=== PATIENT | female | born 1970 | race Caucasian/White ===

== ENCOUNTER → 2018-10-06 | Outpatient (CLI) | payer BC, OTHER ==
--- NOTE | 2018-10-06 09:36 | RADIOLOGY REPORT (SQ) ---
EXAM DESCRIPTION: MRI LUMBAR SPINE WITHOUT COMPLETED DATE/TIME: 10/06/2018 9:20 am REASON FOR STUDY: LUMBAR DDD (M51.26) M51.26 OTHER INTERVERTEBRAL DISC DISPLACEMENT, LUMBAR REGION COMPARISON: None. TECHNIQUE: Sagittal and Axial imaging includes T1, T2, STIR and gradient echo sequences. Coronal T2/ HASTE imaging. LIMITATIONS: None. FINDINGS: VISUALIZED UPPER ABDOMEN: Limited evaluation. No acute or suspicious findings suggested. SEGMENTATION: No transitional anatomy. The lowest well-developed disc space is labeled L5-S1. ALIGNMENT: There is 29 of convex rightward lumbar curvature from the top of T12 to the bottom of L4. Mild grade 1 anterolisthesis of L4 over L5 is also present. VERTEBRAE: Intact. BONE MARROW: Fatty endplate changes on the left at L2-3 DISC SIGNAL: Diffuse decreased T2 weighted intervertebral disc signal POSTERIOR ELEMENTS: Generally intact. No pars defect evident. HARDWARE: None in the spine. CORD AND CONUS: Normal in size and signal intensity. Conus at the T12-L1 level. SOFT TISSUES: No aortic aneurysm seen. No bulky retroperitoneal adenopathy or mass. No paraspinal mas s or fluid. T11-12: No central or foraminal stenosis. Mild bilateral facet hypertrophy. T12-L1: No central or foraminal stenosis. Mild bilateral facet hypertrophy. L1-L2: No significant spinal stenosis or exit foraminal stenosis. L2-L3: Broad diffuse posterior disc bulge left greater than right and [id number] bilateral face t hypertrophy are present. No right foraminal narrowing or central canal stenosis. Mild left forami nal narrowing without exiting L2 nerve root impingement. L3-L4: Mild diffuse posterior disc bulging is present with mild bilateral facet and ligament hypertro phy. No significant central canal narrowing. Very mild bilateral inferior foraminal narrowing witho ut exiting L3 nerve root impingement. L4-L5: Very mild grade 1 anterolisthesis of L4 over L5 is present related to advanced facet arthropat hy. Very bulky right-sided facet hypertrophy along with broad diffuse mild posterior disc bulging ca uses borderline central canal narrowing, mild to moderate right foraminal narrowing without definite exiting L4 nerve root impingement, and flattening of the thecal sac at the takeoff of the right proxi mal L5 nerve root in the lateral recess. These changes are best shown on sagittal images 6-9, and ax ial T2 images 21-24. There is mild left foraminal narrowing without exiting left L4 nerve root impin gement. L5-S1: Mild posterior disc bulging and facet arthropathy. No central or foraminal stenosis SACRUM: Visualized upper sacrum intact. OTHER: No other significant findings. IMPRESSION: Degenerative changes most pronounced at L4-5 TECHNICAL DOCUMENTATION: JOB ID: [id number] [employer]- All Rights Reserved Reading location - IP/workstation name: [email or web address]
--- NOTE | 2018-10-06 11:00 | RADIOLOGY REPORT (SQ) ---
EXAM DESCRIPTION: L SPINE FLEX/EXT ONLY COMPLETED DATE/TIME: 10/06/2018 9:35 am REASON FOR STUDY: SPONDYLOLISTHESIS (Q76.2) M51.26 OTHER INTERVERTEBRAL DISC DISPLACEMENT, LUMBAR R EGION COMPARISON: MRI lumbar spine 10/06/2018 NUMBER OF VIEWS: Two views TECHNIQUE: Lateral lumbar flexion film. Lateral lumbar extension film LIMITATIONS: None. FINDINGS: MINERALIZATION: Normal. SEGMENTATION: Normal. No transitional anatomy. ALIGNMENT: There is minimal grade 1 anterolisthesis of L4 over L5 unchanged between flexion/extension images. FLEXION/EXTENSION: No instability. VERTEBRAE: Maintained height. No fracture or worrisome bone lesion. DISCS: Disc space loss of height at L2-3. POSTERIOR ELEMENTS: Pedicles and facets are intact. No pars defect or posterior arch defects. Bilat eral facet arthropathy at L4-5 and L5-S1. HARDWARE: None in the spine. OTHER: No other significant finding. IMPRESSION: Disc space loss of height at L2-3. Fixed grade 1 anterolisthesis of L4 over L5 related to advanced facet arthropathy. NO INSTABILITY ON FLEXION/EXTENSION. TECHNICAL DOCUMENTATION: JOB ID: [id number] [employer]- All Rights Reserved Reading location - IP/workstation name: [facility]
== END ==
LOC: RAD 08:24
PROVIDERS: ATTEND Pain Medicine Interventional Pain Medicine
DX: M51.26 Other intervertebral disc displacement, lumbar region (principal)
CPT/HCPCS: 72120; 72148

== ENCOUNTER → 2019-12-05 | Outpatient (CLI) | payer OTHER ==
--- NOTE | 2019-12-05 13:56 | XCELERA REPORT ---
[address] [address] Lower Extremity Venous Evaluation Procedure: A bilateral duplex scan of the lower extremity veins was performed. The evaluation included responses to compression and other maneuvers with patient in the supine and standing positions to assess venous insufficiency. Right Sided Venous Evaluation Deep venous system evaluation shows patent veins with no significant reflux identified. Sapheno Femoral junction: no reflux. Greater Saphenous vein, Proximal thigh: reflux: no reflux. Greater Saphenous vein, mid thigh: reflux:no reflux. Greater Saphenous vein, Distal thigh: reflux:no reflux. Greater Saphenous vein, Proximal below knee: reflux: none Greater Saphenous vein, Mid below knee: reflux: none. Greater Saphenous vein, Distal below knee: reflux: no reflux. No significant Perforators identified. Left Sided Venous Evaluation Deep venous system evaluation shows patent veins with no significant reflux identified. Sapheno Femoral junction: no reflux. Greater Saphenous vein, Proximal thigh: reflux: no reflux. Greater Saphenous vein, mid thigh: reflux:no reflux. Greater Saphenous vein, Distal thigh: reflux:no reflux. Greater Saphenous vein, Proximal below knee: reflux: none Greater Saphenous vein, Mid below knee: reflux: none. Greater Saphenous vein, Distal below knee: reflux: no reflux. No significant Perforators identified. Interpretation Summary No duplex evidence of DVT or obstruction in the bilateral lower extremities. No deep prior superficial reflux identified in this patient with prior right sided vein intervention. Name: JERRELL NAVARRETE Age: 49 yrs Gender: Female : 1970 Patient Status: Outpatient Patient Location: Study Date: 12/05/2019 08:08 AM Reason For Study: PAIN IN LEG Ordering Physician: IAN MUSTAFA Performed By: Tammie Lopez : IAN MUSTAFA > Ian Mustafa
--- NOTE | 2019-12-06 11:46 | XCELERA REPORT ---
[address] [address] Tel: [phone] Fax: [phone] Lower Extremity Arterial Evaluation Name: JERRELL NAVARRETE Age: 49 yrs Gender: Female : 1970 Patient Status: Outpatient Patient Location: SP Study Date: 12/05/2019 12:13 PM Procedure: Ankle brachial indicies performed. Reason For Study: PAIN Ordering Physician: KATHI THAO Performed By: Neftali Jones Right Side Arterial Evaluation SERAFIN in Posterior Tibial:1.02. Multiphasic waveform. Left Side Arterial Evaluation SERAFIN in Posterior Tibial:1.00. Multiphasic waveform. Interpretation Summary SERAFIN's are normal suggesting no significant obstructive arterial disease. In the lowere extremities. Within the limitations of this technique. : KATHI THAO > Kathi Thao
== END ==
LOC: SP 07:46
PROVIDERS: ATTEND Surgery
DX: M79.606 Pain in leg, unspecified (principal)
CPT/HCPCS: 93922; 93970

== ENCOUNTER → 2019-12-15 | Outpatient (CLI) | payer OTHER ==
--- NOTE | 2019-12-15 11:17 | WOMENS IMAGING REPORT ---
EXAM DESCRIPTION: U/S ABDOMEN TOTAL COMPLETED DATE/TIME: 12/15/2019 7:47 am REASON FOR STUDY: R10.9 UNSPECIFIED ABDOMINAL PAIN R10.9 UNSPECIFIED ABDOMINAL PAIN COMPARISON: MRI lumbar spine 10/06/2018 TECHNIQUE: Dynamic and static grayscale images acquired of the abdomen and recorded on PACS. Additio nal selected color Doppler and spectral images recorded. Note: Study does not meet criteria for complete doppler/duplex scan LIMITATIONS: None. FINDINGS: PANCREAS: Midline pancreas unremarkable LIVER: No masses. Echotexture normal. LIVER VASCULATURE: Normal directional flow of the main portal vein and hepatic veins. GALLBLADDER: No stones. Normal wall thickness. No pericholecystic fluid. ULTRASOUND-DETECTED CA'S SIGN: Negative. INTRAHEPATIC DUCTS AND COMMON DUCT: CBD and intrahepatic ducts normal caliber. No filling defects. INFERIOR VENA CAVA: Normal flow. AORTA: No aneurysm. RIGHT KIDNEY: Normal size. Normal echogenicity. No solid or suspicious masses. No hydronephros is. No calcifications. LEFT KIDNEY: Normal size. Normal echogenicity. No solid or suspicious masses. No hydronephrosi s. No calcifications. SPLEEN: Normal size. No solid masses. PERITONEAL AND PLEURAL SPACES: No ascites or effusions. OTHER: No other significant finding. IMPRESSION: NORMAL ABDOMINAL ULTRASOUND. TECHNICAL DOCUMENTATION: JOB ID: [id number] [employer]- All Rights Reserved Reading location - IP/workstation name: [email or web address]
== END ==
LOC: WI 06:55
PROVIDERS: ATTEND Internal Medicine Gastroenterology
DX: R10.9 Unspecified abdominal pain (principal)
CPT/HCPCS: 76700

== ENCOUNTER → 2020-09-04 | Outpatient (CLI) | payer OTHER ==
--- NOTE | 2020-09-04 19:22 | RADIOLOGY REPORT (SQ) ---
EXAM DESCRIPTION: MRI LUMBAR SPINE WITHOUT IMAGES COMPLETED DATE/TIME: 09/04/2020 3:57 pm REASON FOR STUDY: (M54.16)RADICULOPATHY, LUMBAR REGION M54.16 RADICULOPATHY, LUMBAR REGION M54.2 C ERVICALGIA. Low back pain radiating down both legs. Spinal stimulator. Decreased range of motion, radiating pain, stiffness, tingling, sciatica, symptoms for 5 years. COMPARISON: MRI lumbar spine, 10/06/2018. Lumbar spine radiographs, 10/06/2018. TECHNIQUE: Sagittal and Axial imaging includes T1, T2, STIR and gradient echo sequences. Coronal T2/ HASTE imaging. LIMITATIONS: None. FINDINGS: VISUALIZED UPPER ABDOMEN: Limited evaluation. No acute or suspicious findings suggested. SEGMENTATION: No transitional anatomy. The lowest well-developed disc space is labeled L5-S1. ALIGNMENT: Approximately 30 apex right scoliotic curvature, unchanged from prior. Mild grade 1 ante rolisthesis L4 on L5. Findings are unchanged from prior. VERTEBRAE: Intact. BONE MARROW: Normal. No marrow replacement or reactive changes. DISC SIGNAL: Multilevel degenerative disc disease with loss of intervertebral disc signal and height. POSTERIOR ELEMENTS: Generally intact. No pars defect evident. HARDWARE: None in the spine. CORD AND CONUS: Normal in size and signal intensity. Conus at the appropriate level. SOFT TISSUES: No aortic aneurysm seen. No bulky retroperitoneal adenopathy or mass. No paraspinal mas s or fluid. L1-L2: No significant spinal stenosis or exit foraminal stenosis. L2-L3: Small broad-based posterior disc bulge. Disc material extends to the right and left neural fo ramen. No significant spinal canal stenosis. Bilateral facet arthropathy. Facet arthropathy and di sc material contribute to mild bilateral neural foraminal stenosis, unchanged from prior. L3-L4: Mild diffuse posterior disc bulge. Mild bilateral facet hypertrophy. No spinal canal stenosi s. No significant neural foraminal stenosis. L4-L5: Moderate loss of intervertebral disc height. Mild anterolisthesis L4 on L5. Bilateral facet arthropathy with hypertrophy of the ligamentum flavum. Small broad-based posterior disc bulge with n o significant spinal canal stenosis. Disc material extends to the right and left neural foramen whic h in conjunction with facet arthropathy contributes to moderate right neural foraminal stenosis. No significant left neural foraminal stenosis. L5-S1: Mild loss of posterior intervertebral disc height. No significant spinal canal stenosis. No neural foraminal stenosis. LOWER THORACIC: Incompletely imaged. No stenosis seen. SACRUM: Sacral Tarlov cysts. OTHER: No other significant findings. IMPRESSION: 1. No significant interval change. Mild scoliotic curvature and mild anterolisthesis. Multilevel de generative disc disease as described. No significant spinal canal stenosis. Neural foraminal stenos is as described above. TECHNICAL DOCUMENTATION: JOB ID: [id number] 2010 [employer]- All Rights Reserved Reading location - IP/workstation name: [email or web address]
--- NOTE | 2020-09-04 19:24 | RADIOLOGY REPORT (SQ) ---
EXAM DESCRIPTION: CERV SP 4 OR 5 VIEWS IMAGES COMPLETED DATE/TIME: 09/04/2020 4:38 pm REASON FOR STUDY: (M54.2)CERVICALGIA M54.16 RADICULOPATHY, LUMBAR REGION M54.2 CERVICALGIA COMPARISON: None. NUMBER OF VIEWS: Five views. TECHNIQUE: AP, lateral, obliques and odontoid radiographic images acquired of the cervical spine. LIMITATIONS: None. FINDINGS: MINERALIZATION: Normal. ALIGNMENT: Anatomic. VERTEBRAE: No acute fracture or loss of vertebral body height. Small marginal osteophytes at the inf erior endplate C5 and superior endplate C6. DISCS: Mild degenerative disc disease most prominent at C5-C6. FORAMINA: No osteophytes or foraminal narrowing. LATERAL AND POSTERIOR ELEMENTS: Facets, lateral masses and spinous processes without significant find ings. HARDWARE: None in the spine. SOFT TISSUES: No masses or calcifications. Lung apices clear. OTHER: No other significant finding. IMPRESSION: Mild degenerative disc disease and spondylosis in the mid cervical spine. No acute frac ture or dislocation. TECHNICAL DOCUMENTATION: JOB ID: [id number] [employer]- All Rights Reserved Reading location - IP/workstation name: [email or web address]
== END ==
LOC: RAD 16:13
PROVIDERS: ATTEND Student in an Organized Health Care Education/Training Program
DX: M54.16 Radiculopathy, lumbar region (principal); M50.322 Other cervical disc degeneration at C5-C6 level; M47.812 Spondylosis without myelopathy or radiculopathy, cervical region
CPT/HCPCS: 72050; 72148

== ENCOUNTER → 2020-09-18 | Outpatient (CLI) | payer OTHER ==
[2020-09-18 15:16] LABS: INTERNATIONAL RATION (INR) 0.97; PARTIAL THROMBOPLASTIN TIME 29.7 SEC (23.5-35.8); PROTHROMBIN TIME 13.1 SEC (11.4-15.4)
[2020-09-18 15:18] LABS: ABSOLUTE EOSINOPHILS # (AUTO) 0.1 10^3/uL (0.0-0.6); ABSOLUTE LYMPHOCYTES (AUTO) 2.6 10^3/uL (0.5-4.7); ABSOLUTE MONOCYTES (AUTO) 0.3 10^3/uL (0.1-1.4); ABSOLUTE NEUT (AUTO) 2.7 10^3/uL (1.7-8.2); BASOPHILS % (AUTO) 0.5 % (0-2); HEMATOCRIT 37.3 % (36.0-47.0); HEMOGLOBIN 13.1 g/dL (12.0-15.5); LYMPHOCYTES % (AUTO) 45.6 % (13-45); MEAN CORPUSCULAR HEMOGLOBIN 34.5 pg (27.0-33.4); MEAN CORPUSCULAR HGB CONC 35.1 g/dL (32.0-36.0); MEAN CORPUSCULAR VOLUME 98 fl (80-97); PLATELET COUNT 228 10^3/uL (150-450); RED CELL DISTRIBUTION WIDTH 12.9 % (11.5-14.0); SEGMENTED NEUTROPHILS % (AUTO) 46.9 % (42-78); TOTAL CELLS COUNTED % (AUTO) 100 %; WHITE BLOOD COUNT 5.7 10^3/uL (4.0-10.5)
[2020-09-18 15:31] LABS: APPEARANCE,URINE CLEAR; BILIRUBIN,URINE NEGATIVE (NEGATIVE); COLOR,URINE YELLOW; GLUCOSE, URINE NEGATIVE (NEGATIVE); KETONES,URINE NEGATIVE (NEGATIVE); LEUKOCYTE ESTERASE,URINE NEGATIVE (NEGATIVE); NITRITE,URINE NEGATIVE (NEGATIVE); PROTEIN,URINE NEGATIVE (NEGATIVE); URINE SPECIFIC GRAVITY 1.011; UROBILINOGEN,URINE NEGATIVE mg/dL (<2.0)
== END ==
LOC: OD 14:31
PROVIDERS: ATTEND Student in an Organized Health Care Education/Training Program
DX: M54.16 Radiculopathy, lumbar region (principal)
CPT/HCPCS: 36415; 81001; 85025; 85610; 85730

== ENCOUNTER → 2020-10-03 | Outpatient (CLI) | payer OTHER ==
--- NOTE | 2020-10-03 19:12 | RADIOLOGY REPORT (SQ) ---
EXAM DESCRIPTION: MRI THORACIC SPINE WITHOUT IMAGES COMPLETED DATE/TIME: 10/03/2020 5:09 pm REASON FOR STUDY: (M54.16)RADICULOPATHY, LUMBAR REGION M54.16 RADICULOPATHY, LUMBAR REGION COMPARISON: None. TECHNIQUE: Sagittal and Axial imaging includes T1, T2, STIR and gradient echo sequences. LIMITATIONS: None. FINDINGS: LOCALIZER: No worrisome findings. ALIGNMENT: Normal. VERTEBRAE: Intact. BONE MARROW: Normal. No marrow replacement or reactive changes. HARDWARE: None in the spine. CORD: Normal in size and signal intensity. SOFT TISSUES: No soft tissue masses. THORACIC DISCS T1-T12: No significant spinal stenosis or exit foraminal stenosis. LOWER CERVICAL: Incompletely imaged. No significant spinal stenosis or exit foraminal stenosis. UPPER LUMBAR: Incompletely imaged. No significant spinal stenosis or exit foraminal stenosis. OTHER: No other significant finding. IMPRESSION: NORMAL MRI THORACIC SPINE. TECHNICAL DOCUMENTATION: JOB ID: [id number] 2010 [employer]- All Rights Reserved Reading location - IP/workstation name: [email or web address]
--- OUTSIDE RECORDS SUMMARY | 2020-10-04 15:44 | XMS REPORT ---
:1970 Author Organization [facility] [address] [place] [address] Care Team Providers Name Role Phone DESTINI MCDONALD Primary Care Physician Unavailable Jeremiah Nair Attending Clinician Unavailable Rach Dominguez Attending Clinician Unavailable Fay Coley Attending Clinician Unavailable Kasie Mcleod Attending Clinician Unavailable Allergies, Adverse Reactions, Alerts Allergy Name Allergy Status Severity Reaction(s) Onset Inactive Treat ing Comments Type Date Date Clinician PENICILLINS Miscellaneo Active U 2018-0 us allergy 1-15 00:00: 00 SULFA Miscellaneo Active U (SULFONAMIDE us allergy 1-15 ANTIBIOTICS) 00:00: 00 CODEINE Drug Active U 2019 allergy 1-15 00:00: 00 CodeineSulfa Drug Active U hives te Allergy 2-06 00:00: 00 Latex Drug Active U skin Allergy irritation 2-06 00:00: 00 penicillin Drug Active U hives Allergy 2-06 00:00: 00 sulfa Drug Active U hives Allergy 2-06 00:00: 00 Medications Ordered Filled Start Stop Current Ordering Indication Dosage Frequency Signature Comments Components Medication Medication Date Date Medication? Clinician (SIG) Name Name Tramadol 2017-11 No 1 tablet HCl 50 MG 0-03 Orally tid 00:00: prn pain 00 Tramadol No 1 tablet HCl 50 MG 4-13 Orally tid 00:00: prn pain 00 Levocetiriz No 1 tablet ine orally qhs Dihydrochlo ride 5mg Montelukast No QD 1 tablet Sodium 10 in the MG evening Orally Once a day Levothyroxi No QD 1 tablet ne Sodium on an 125 MCG empty stomach in the morning Orally Once a day Escitalopra No QD 1 tablet m Oxalate Orally 10 MG Once a day Restoril 30 Yes 1 capsule MG Orally qhs prn sleep Problems Condition Condition Condition Status Onset Resolution Last Treatin g Comments Name Details Category Date Date Treatment Clinician Date Acute Acute Problem Active right-sided right-sided 6-05 low back low back 00:00: pain with pain with 00 right-sided right-sided sciatica sciatica Gastroesoph Gastroesoph Problem Active ageal ageal 4-19 reflux reflux 00:00: disease, disease, 00 esophagitis esophagitis presence presence not not specified specified Hypothyroid Hypothyroid Problem Active ism ism 12-17 (acquired) (acquired) 00:00: 00 Migraine Migraine Problem Active without without 12-17 aura and aura and 00:00: without without 00 status status migrainosus migrainosus , not , not intractable intractable Procedures Procedure Date / Time Performed Performing Clinician Devi e OFFICE/OUTPATIENT VISIT EST 2018-12-28 16:15:00 OFFICE/OUTPATIENT VISIT NEW 2018-12-06 15:00:00 [id number] 2018-04-29 00:00:00 [id number] 2018-04-29 00:00:00 [id number] 2018-04-29 00:00:00 [id number] 2018-04-29 00:00:00 [id number] 2018-04-29 00:00:00 Offic Visit, Est Pt., Level 3 (2018-04-29 00:00:00 min) [id number] 2018-04-28 00:00:00 [id number] 2018-04-28 00:00:00 [id number] 2018-04-28 00:00:00 [id number] 2018-04-26 00:00:00 J3301 2018-04-26 00:00:00 [id number] 2018-04-26 00:00:00 [id number] 2018-03-14 00:00:00 Offic Visit, Est Pt., Level 5 (2018-03-14 00:00:00 min) [id number] 2018-01-19 00:00:00 [id number] 2018-01-19 00:00:00 [id number] 2017-12-31 00:00:00 [id number] 2017-12-28 00:00:00 [id number] 2017-12-28 00:00:00 Offic Visit, Est Pt., Level 3 (2017-10-18 00:00:00 min) [id number] 2017-08-16 00:00:00 [id number] 2017-08-16 00:00:00 Offic Visit, Est Pt., Level 3 (2017-08-16 00:00:00 min) Pneumococcal 2016-12-17 00:00:00 [id number] 2016-12-17 00:00:00 Offic Visit, New Pt., Level 3 (2016-12-17 00:00:00 min) Results Test Description Test Time Test Comments Text Results Atomic Results Result Comments INTERPRETATION 2018-12-07 13:59:00 See Below RESPIRATORY ALLERGY PROFILE REGION II 2018-12-07 13:59:00 Test Item Value Reference Range Comments MOUSE URINE PROTEINS (E72) IGE (test code = 05452635) <0.10 kU/L CLASS (test code = 69949605) 0 CLADOSPORIUM HERBARUM (M2) IGE (test code = 78570911) <0.10 kU/L SHEEP SORREL (W18) IGE (test code = 30063964) <0.10 kU/L CLASS (test code = 19528592) 0 IMMUNOGLOBULIN E (test code = 64217603) 62 kU/L <IR=064 CLASS (test code = 89481947) 0 ALTERNARIA ALTERNATA (M6) IGE (test code = 65766203) <0.10 kU/L ASPERGILLUS FUMIGATUS (M3) IGE (test code = 52170257) <0.10 kU/L CLASS (test code = 16729618) 2 CLASS (test code = 70049017) 0 CLASS (test code = 46492632) 0 CLASS (test code = 34509569) 0 COTTON[place]OD (T14) IGE (test code = 10724550) <0.10 kU/L WHITE MULBERRY (T70) IGE (test code = 93550085) <0.10 kU/L BIRCH (T3) IGE (test code = 93273121) <0.10 kU/L DERMATOPHAGOIDES FARINAE (D2) IGE (test code = 41044959) <0.10 k U/L CLASS (test code = 80282281) 0 HICKORY/PECAN TREE (T22) IGE (test code = 60497803) 0.11 kU/L MAPLE (BOX ELDER) (T1) IGE (test code = 91936784) <0.10 kU/L CAT DANDER (E1) IGE (test code = 69011354) <0.10 kU/L CLASS (test code = 64257813) 0 ROUGH PIGWEED (W14) IGE (test code = 69059495) <0.10 kU/L M[place] (T6) IGE (test code = 70328143) <0.10 kU/L KEISHA GRASS (G6) IGE (test code = 50048126) 2.94 kU/L BERMUDA GRASS (G2) IGE (test code = 75334013) 0.27 kU/L COMMON RAGWEED (SHORT) (W1) IGE (test code = 65668370) <0.10 kU/ L CLASS (test code = 90081627) 0 DOG DANDER (E5) IGE (test code = 76841438) <0.10 kU/L CLASS (test code = 92092334) 0 SHELLEY GRASS (G10) IGE (test code = 31142720) 0.64 kU/L CLASS (test code = 77918639) 0 CLASS (test code = 92016755) 0 DERMATOPHAGOIDES PTERONYSSINUS (D1) IGE (test code = 86063360) < 0.10 kU/L CLASS (test code = 43485477) 0 CLASS (test code = 37263677) 0 ELM (T8) IGE (test code = 88248757) <0.10 kU/L PENICILLIUM NOTATUM (M1) IGE (test code = 15649036) <0.10 kU/L CLASS (test code = 76996140) 0 CLASS (test code = 31085882) 0 CLASS (test code = 04421727) 0 OAK (T7) IGE (test code = 27089469) <0.10 kU/L CLASS (test code = 66630838) 0 CLASS (test code = 13598547) 0 CLASS (test code = 09984588) 0 CLASS (test code = 50255768) 0 COCKROACH (I6) IGE (test code = 88496474) <0.10 kU/L CLASS (test code = 71424262) 1 CLASS (test code = 21841773) 0 BASIC METABOLIC [id number] 00:00:00 Test Item Value Reference Range Comments CARBON DIOXIDE (test code 30 mmol/L 20-31 Hildeb rafael,Rach L = 83000976) 04/29/2018 12:34 :06 PM EDT > CREATININE (test code = 0.66 mg/dL 0.50-1.10 Hildebra n,Rach L 82729242) 04/29/2018 12:34 :06 PM EDT > eGFR NON-AFR. ANGUILLAN 107 mL/min/1.73m2 > OR = 60 Hildebr an,Rach L (test code = 59927081) 8 12:34:06 PM EDT > POTASSIUM (test code = 4.2 mmol/L 3.5-5.3 [place] ,Rach L 69413007) 04/29/2018 12:34 :06 PM EDT > eGFR 124 mL/min/1.73m2 > OR = 60 Hildebra n,Rach L (test code = 12837971) 8 12:34:06 PM EDT > CHLORIDE (test code = 104 mmol/L 98-110 [place], Rach L 40152768) 04/29/2018 12:34 :06 PM EDT > CALCIUM (test code = 9.2 mg/dL 8.6-10.2 [place],T racy L [id number]) 04/29/2018 12:34 :06 PM EDT > BUN/CREATININE RATIO NOT APPLICABLE (calc) 6-22 Nayana branRach L (test code = 74324238) 8 12:34:06 PM EDT > SODIUM (test code = 139 mmol/L 135-146 [place],Tr acy L 89271939) 04/29/2018 12:34 :06 PM EDT > UREA NITROGEN (BUN) (test 15 mg/dL 7-25 Tedeb rafael,Rach L code = 42814294) 04/29/2018 12:3 4:06 PM EDT > GLUCOSE (test code = 104 mg/dL 65-99 [place],T racy L [id number]) 04/29/2018 12:34 :06 PM EDT > CBC (INCLUDES DIFF/PLT)2018-04-29 00:00:00 Test Item Value Reference Range Comments BASOPHILS (test code = 0.6 % [place] ,Rach L [id number]) 04/29/2018 12:33 :55 PM EDT > ABSOLUTE BASOPHILS (test 31 cells/uL 0-200 Hildebr an,Rach L code = 92201468) 04/29/2018 12:3 3:55 PM EDT > LYMPHOCYTES (test code = 29.0 % Hildebr an,Rach L 08746356) 04/29/2018 12:33 :55 PM EDT > RDW (test code = 51252325) 13.6 % 11.0-15.0 Nayana bran,Rach L 04/29/2018 12:33 :55 PM EDT > MCV (test code = 31592687) 98.4 fL 80.0-100.0 Nayana bran,Rach L 04/29/2018 12:33 :55 PM EDT > ABSOLUTE MONOCYTES (test 754 cells/uL 200-950 Hildebr an,Rach L code = 79001228) 04/29/2018 12:3 3:55 PM EDT > HEMATOCRIT (test code = 42.5 % 35.0-45.0 Hildebra n,Rach L [id number]) 04/29/2018 12:33 :55 PM EDT > PLATELET COUNT (test code = 214 Thousand/uL 140-400 Hild ebran,Rach L 08935370) 04/29/2018 12:33 :55 PM EDT > ABSOLUTE EOSINOPHILS (test 172 cells/uL 15-500 Nayana bran,Rach L code = 15876014) 04/29/2018 12:3 3:55 PM EDT > MONOCYTES (test code = 14.5 % [place] ,Rach L 97483132) 04/29/2018 12:33 :55 PM EDT > MCHC (test code = 73602896) 32.9 g/dL 32.0-36.0 Hild ebran,Rach L 04/29/2018 12:33 :55 PM EDT > ABSOLUTE NEUTROPHILS (test 2735 cells/uL 0390-2603 Nayana bran,Rach L code = 94652305) 04/29/2018 12:3 3:55 PM EDT > HEMOGLOBIN (test code = 14.0 g/dL 11.7-15.5 Hildebra n,Rach L 35107163) 04/29/2018 12:33 :55 PM EDT > NEUTROPHILS (test code = 52.6 % Rach Morgan L 43400723) 04/29/2018 12:33 :55 PM EDT > EOSINOPHILS (test code = 3.3 % Rach Morgan L 33898977) 04/29/2018 12:33 :55 PM EDT > RED BLOOD CELL COUNT (test 4.32 Million/uL 3.80-5.10 Rach Licona L code = 93922393) 04/29/2018 12:3 3:55 PM EDT > MCH (test code = 54426942) 32.4 pg 27.0-33.0 Rach Licona 04/29/2018 12:33 :55 PM EDT > ABSOLUTE LYMPHOCYTES (test 1508 cells/uL 850-3900 Rach Licona L code = 35986151) 04/29/2018 12:3 3:55 PM EDT > WHITE BLOOD CELL COUNT (test 5.2 Thousand/uL 3.8-10.8 Rach Jerez L code = 62174147) 04/29/2018 12:3 3:55 PM EDT > MPV (test code = 63103274) 10.0 fL 7.5-12.5 Rach Licona 04/29/2018 12:33 :55 PM EDT > T4, Total/[id number] 00:00:00 Test Item Value Reference Range Comments T4 (test code = 692559) 8.2 ug/dL 4.5-12.0 Burt tobinRach Carlos 12/18/2016 06:39:17 PM EST > Call and let her know all labs we re normal. Veronica Bey , EXTRACT WRINGER 12/23/2016 04:29:08 PM EST > mailed labs to patient BMP with Estimated [id number] 00:00:00 Test Item Value Reference Range Comments Calcium (test code = 467678) 9.5 mg/dL 8.6-10.2 Te barajasRach L 12/18/2016 06:38:56 PM EST > Chloride (test code = 113120) 104 mmol/L 98-110 Dc Rach flores 12/18/2016 06:38:56 PM EST > Est GFR, NonAfrican Bhutanese >89 mL/min >=60 Rach Jerez L 12/18/2016 (test code = 223068) 06:38:56 PM EST > Potassium (test code = 661542) 5.0 mmol/L 3.5-5.3 H Rach waldron L 12/18/2016 06:38:56 PM EST > Creatinine (test code = 0.78 mg/dL 0.50-1.10 uBrt tobinRach L 12/18/2016 612689) 06:38:56 PM EST > Glucose (test code = 863609) 85 mg/dL 65-99 Rach Jerez L 12/18/2016 06:38:56 PM EST > Est GFR, >89 mL/min >=60 [facility] 12/18/2016 (test code = 036629) 06:38:56 PM EST > CO2 (test code = 529036) 28 mmol/L 20-31 [facility] 12/18/2016 06:38:56 PM EST > Sodium (test code = 859678) 140 mmol/L 135-146 [facility] L 12/18/2016 06:38:56 PM EST > BUN (test code = 048558) 14 mg/dL 7-25 Ally nguyenRach L 12/18/2016 06:38:56 PM EST > [id number] 00:00:00 Test Item Value Reference Range Comments TSH (test code = 843830) 0.625 uIU/mL 0.350-4.500 [facility] 12/18/2016 06:38:27 PM EST > Assessments Condition Name Status Diagnosis Date Treating Clinici an Allergic contact dermatitis due to other Active agents Body mass index (BMI) 25.0-25.9, adult Active Allergic rhinitis due to pollen Active Dermatitis, unspecified Active Other allergic rhinitis Active Dermatitis, unspecified Active Hypothyroidism, unspecified Active Other muscle spasm Active - Dehydration E86.0 Active [place], T racy - Dehydration E86.0 Active [place], T racy - Acute URI J06.9 Active [place], Tra cy - Mouth sores K13.79 Active [place], Rach - Fever and chills R50.9 Active Hildebr an, Rach - Nausea R11.0 Active [place], Rach - Scoliosis concern Z13.828 Active Hild ebran, Rach Nausea Active Fever and chills Active Dehydration Active Acute URI Active Mouth sores Active Scoliosis concern Active Nausea Active Fever and chills Active Dehydration Active Acute URI Active Mouth sores Active Scoliosis concern Active - Hip pain, right M25.551 Active Hildeb ran, Rach - Acute maxillary sinusitis, recurrence not Active [place], Rach specified J01.00 Acute maxillary sinusitis, recurrence not Active specified Hip pain, right Active Acute maxillary sinusitis, recurrence not Active specified Hip pain, right Active Acute maxillary sinusitis, recurrence not Active specified Hip pain, right Active - Acute right-sided low back pain with Active [place], Rach right-sided sciatica M54.41 - Hip pain, right M25.551 Active Hildeb ran, Rach - Strep throat J02.0 Active [place], Rach Hip pain, right Active Acute right-sided low back pain with Active right-sided sciatica Strep throat Active Acute right-sided low back pain with Active right-sided sciatica Strep throat Active Acute right-sided low back pain with Active right-sided sciatica Strep throat Active Acute right-sided low back pain with Active right-sided sciatica Strep throat Active - Pre-operative cardiovascular examination Active Fay Coley Z01.810 - Obesity (BMI 30.0-34.9) E66.9 Active Fay Coley - Gastroesophageal reflux disease, Active Fay Coley esophagitis presence not specified K21.9 - Disease of thyroid gland E07.9 Active Fay Coley - History of adjustable gastric banding Active Fay Coley Z98.84 - Asthma, unspecified asthma severity, Active Fay Coley unspecified whether complicated, unspecified whether persistent J45.909 Pre-operative cardiovascular examination Active Obesity (BMI 30.0-34.9) Active Gastroesophageal reflux disease, esophagitis Active presence not specified Disease of thyroid gland Active Asthma, unspecified asthma severity, Active unspecified whether complicated, unspecified whether persistent History of adjustable gastric banding Active Pre-operative cardiovascular examination Active Obesity (BMI 30.0-34.9) Active Gastroesophageal reflux disease, esophagitis Active presence not specified Disease of thyroid gland Active Asthma, unspecified asthma severity, Active unspecified whether complicated, unspecified whether persistent History of adjustable gastric banding Active Pre-operative cardiovascular examination Active Obesity (BMI 30.0-34.9) Active Gastroesophageal reflux disease, esophagitis Active presence not specified Disease of thyroid gland Active Asthma, unspecified asthma severity, Active unspecified whether complicated, unspecified whether persistent History of adjustable gastric banding Active Pre-operative cardiovascular examination Active Obesity (BMI 30.0-34.9) Active Gastroesophageal reflux disease, esophagitis Active presence not specified Disease of thyroid gland Active Asthma, unspecified asthma severity, Active unspecified whether complicated, unspecified whether persistent History of adjustable gastric banding Active Pre-operative cardiovascular examination Active Obesity (BMI 30.0-34.9) Active Gastroesophageal reflux disease, esophagitis Active presence not specified Disease of thyroid gland Active Asthma, unspecified asthma severity, Active unspecified whether complicated, unspecified whether persistent History of adjustable gastric banding Active - Encounter for immunization Z23 Active Rach Dominguez Encounter for immunization Active Encounter for immunization Active Encounter for immunization Active Encounter for immunization Active Encounter for immunization Active Encounter for immunization Active School physical exam Active School physical exam Active School physical exam Active School physical exam Active School physical exam Active - School physical exam Z02.0 Active Rach Jerez School physical exam Active School physical exam Active School physical exam Active - School physical exam Z02.0 Active Rach Jerez Left foot pain Active Left foot pain Active Left foot pain Active Left foot pain Active Left foot pain Active Left foot pain Active Left foot pain Active Left foot pain Active - Left foot pain M79.672 Active Rach Morgan Left foot pain Active Screening mammogram, encounter for Active Screening mammogram, encounter for Active Screening mammogram, encounter for Active Screening mammogram, encounter for Active Screening mammogram, encounter for Active Screening mammogram, encounter for Active Screening mammogram, encounter for Active Screening mammogram, encounter for Active Screening mammogram, encounter for Active - Left foot pain M79.672 Active Rach Morgan - Screening mammogram, encounter for Z12.31 Active Rach Dominguez Acute maxillary sinusitis, recurrence not Active specified Arthralgia, unspecified joint Active Acute maxillary sinusitis, recurrence not Active specified Arthralgia, unspecified joint Active Acute maxillary sinusitis, recurrence not Active specified Arthralgia, unspecified joint Active Acute maxillary sinusitis, recurrence not Active specified Arthralgia, unspecified joint Active Acute maxillary sinusitis, recurrence not Active specified Arthralgia, unspecified joint Active Acute maxillary sinusitis, recurrence not Active specified Arthralgia, unspecified joint Active Acute maxillary sinusitis, recurrence not Active specified Arthralgia, unspecified joint Active Arthralgia, unspecified joint Active Arthralgia, unspecified joint Active Arthralgia, unspecified joint Active - Acute maxillary sinusitis, recurrence not Active Kasie Mcleod specified J01.00 - Arthralgia, unspecified joint M25.50 Active Kasie Mcleod Hypothyroidism (acquired) Active Need for pneumococcal vaccination Active Cervicalgia Active High risk medication use Active Migraine without aura and without status Active migrainosus, not intractable Radiculopathy of arm Active History of asthma Active Hypothyroidism (acquired) Active Need for pneumococcal vaccination Active Cervicalgia Active High risk medication use Active Migraine without aura and without status Active migrainosus, not intractable Radiculopathy of arm Active History of asthma Active Hypothyroidism (acquired) Active Need for pneumococcal vaccination Active Cervicalgia Active High risk medication use Active Migraine without aura and without status Active migrainosus, not intractable Radiculopathy of arm Active History of asthma Active Hypothyroidism (acquired) Active Need for pneumococcal vaccination Active Cervicalgia Active High risk medication use Active Migraine without aura and without status Active migrainosus, not intractable Radiculopathy of arm Active History of asthma Active Hypothyroidism (acquired) Active Need for pneumococcal vaccination Active Cervicalgia Active High risk medication use Active Migraine without aura and without status Active migrainosus, not intractable Radiculopathy of arm Active History of asthma Active Hypothyroidism (acquired) Active Cervicalgia Active High risk medication use Active Migraine without aura and without status Active migrainosus, not intractable Radiculopathy of arm Active History of asthma Active Hypothyroidism (acquired) Active Cervicalgia Active High risk medication use Active Migraine without aura and without status Active migrainosus, not intractable Radiculopathy of arm Active History of asthma Active Hypothyroidism (acquired) Active Cervicalgia Active High risk medication use Active Migraine without aura and without status Active migrainosus, not intractable Radiculopathy of arm Active History of asthma Active Hypothyroidism (acquired) Active Cervicalgia Active High risk medication use Active Migraine without aura and without status Active migrainosus, not intractable Radiculopathy of arm Active History of asthma Active Hypothyroidism (acquired) Active Cervicalgia Active High risk medication use Active Migraine without aura and without status Active migrainosus, not intractable Radiculopathy of arm Active History of asthma Active Hypothyroidism (acquired) Active Cervicalgia Active High risk medication use Active Migraine without aura and without status Active migrainosus, not intractable Radiculopathy of arm Active History of asthma Active - Cervicalgia M54.2 Active [place], T racy - Radiculopathy of arm M54.10 Active Hi ldebran, Rach - Hypothyroidism (acquired) E03.9 Active [place], Rach - History of asthma Z87.09 Active Nayana bran, Rach - Migraine without aura and without status Active [place], Rach migrainosus, not intractable G43.009 - High risk medication use Z79.899 Active [place], Rach - Need for pneumococcal vaccination Z23 Active [place], Rach Encounters Start End Encounter Admission Attending Care Care Encounter Date/Time Date/Time Type Type Clinicians Facility Department ID 2018-12-28 2018-12-28 Outpatient [place]io[place], [facility] [id number] 16:15:00 16:15:00 Children [id number] s [id number] and [id number] [facility] [place] 2018-12-06 2018-12-06 Outpatient Hio[place], [facility] [id number] 15:00:00 15:00:00 Children [id number] s [id number] and [id number] [facility] [place] 2018-09-30 2018-09-30 Rita CURTIS RDEDISON1 [id number] 00:00:00 00:00:00 [facility] [place] 2018-09-26 2018-09-26 Rita Salinas [id number] 00:00:00 00:00:00 [facility] 2018-08-25 2018-08-25 Rita ELLER1 Rita [id number] 00:00:00 00:00:00 [facility] 2018-08-23 2018-08-23 Rita Salinas [id number] 00:00:00 00:00:00 [facility] Clinic PA 2018-08-22 2018-08-22 [address] RDCP1 Rita [id number] 00:00:00 00:00:00 [facility] Clinic PA 2018-08-20 2018-08-20 [place] [address]CP1 Rita [id number] 00:00:00 00:00:00 [facility] Clinic PA 2018-07-29 2018-07-29 Rita RDCP1 Rita [id number] 00:00:00 00:00:00 [facility] Clinic PA 2018-07-29 2018-07-29 [address]CP1 Rita [id number] 00:00:00 00:00:00 [facility] Clinic PA 2018-07-14 2018-07-14 [address]CP1 Rita [id number] 00:00:00 00:00:00 [facility] Clinic PA 2018-07-13 2018-07-13 [address]CP1 Rita [id number] 00:00:00 00:00:00 [facility] Clinic PA 2018-07-08 2018-07-08 [address] RDCP1 Rita [id number] 00:00:00 00:00:00 [facility] Clinic PA 2018-07-08 2018-07-08 [address]CP1 Rita [id number] 00:00:00 00:00:00 [facility] Clinic PA 2018-06-17 2018-06-17 [address]CP1 Rita [id number] 00:00:00 00:00:00 [facility] Clinic PA 2018-06-06 2018-06-06 [address]CP1 Rita [id number] 00:00:00 00:00:00 [facility] Clinic PA 2018-04-29 2018-04-29 Outpatient [place], [id number] Rita [id number] 00:00:00 00:00:00 [facility] 2018-04-29 2018-04-29 Outpatient [place], [id number] Rita [id number] 00:00:00 00:00:00 [facility] 2018-04-29 2018-04-29 [address]CP1 Rita [id number] 00:00:00 00:00:00 [facility] PA Clinic PA 2018-04-29 2018-04-29 [address]CP1 Rita [id number] 00:00:00 00:00:00 [facility] PA Clinic PA 2018-04-28 2018-04-28 Outpatient Angelica [id number] Rita [id number] 00:00:00 00:00:00 Rach [facility] 2018-04-28 2018-04-28 [address]CP1 Rita [id number] 00:00:00 00:00:00 [facility] PA Clinic PA 2018-04-28 2018-04-28 [address]CP1 Rita [id number] 00:00:00 00:00:00 [facility] PA Clinic PA 2018-04-26 2018-04-26 Outpatient Angelica [id number] Rita [id number] 00:00:00 00:00:00 [facility]ach [facility] 2018-04-26 2018-04-[address]1 Rita [id number] 00:00:00 00:00:00 [facility] Clinic PA 2018-03-21 2018-03-21 [address]CP1 Rita [id number] 00:00:00 00:00:00 [facility] Clinic PA 2018-03-14 2018-03-14 Outpatient Brijesh [id number] Rita [id number] 00:00:00 00:00:00 Fay [facility]itioned [facility] Clinic 2018-03-14 2018-03-[address] [facility] [id number] 00:00:00 00:00:00 [place] 2018-03-10 2018-03-10 [address]CP1 Rita [id number] 00:00:00 00:00:00 [facility] Clinic PA 2018-03-10 2018-03-10 [address]CP1 Rita [id number] 00:00:00 00:00:00 [facility] Clinic PA 2018-03-10 2018-03-10 [address]CP1 Rita [id number] 00:00:00 00:00:00 [facility] Clinic PA 2018-02-28 2018-02-28 [address]CP1 Rita [id number] 00:00:00 00:00:00 [facility] Clinic PA 2018-02-01 2018-02-01 [address]CP1 Rita [id number] 00:00:00 00:00:00 [facility] Clinic PA 2018-01-19 2018-01-19 Outpatient [place], [id number] Rita [id number] 00:00:00 00:00:00 Rach sitioned [facility] 2018-01-19 2018-01-19 Rita RDCP1 Rita [id number] 00:00:00 00:00:00 [facility] Clinic PA 2018-01-18 2018-01-18 Rita RDCP1 Rita [id number] 00:00:00 00:00:00 [facility] PA Clinic PA 2017-12-31 2017-12-31 Outpatient [place], [id number] Rita [id number] 00:00:00 00:00:00 [facility] 2017-12-31 2017-12-31 Rita RDCP1 Rita [id number] 00:00:00 00:00:00 [facility] PA Clinic PA 2017-12-28 2017-12-28 Outpatient [place], [id number] Rita [id number] 00:00:00 00:00:00 [facility] 2017-12-28 2017-12-28 Rita RDCP1 Rita [id number] 00:00:00 00:00:00 [facility] Clinic PA 2017-10-28 2017-10-28 Rita RDCP1 Rita [id number] 00:00:00 00:00:00 [facility] Clinic PA 2017-10-28 2017-10-28 Rita RDCP1 Rita [id number] 00:00:00 00:00:00 [facility] Clinic PA 2017-10-28 2017-10-28 Rita RDCP1 Rita [id number] 00:00:00 00:00:00 [facility] Clinic PA 2017-10-27 2017-10-27 Rita RDCP1 Rita [id number] 00:00:00 00:00:00 [facility] Clinic PA 2017-10-19 2017-10-19 Rita RDCP1 Rita [id number] 00:00:00 00:00:00 [facility] Clinic PA 2017-10-19 2017-10-19 Rita RDCP1 Rita [id number] 00:00:00 00:00:00 [facility] Clinic PA 2017-10-18 2017-10-18 Rita RDCP1 Rita [id number] 00:00:00 00:00:00 [facility] Clinic PA 2017-10-18 2017-10-18 Outpatient Angelica [id number] Salinas [id number] 00:00:00 00:00:00 [facility] 2017-10-04 2017-10-04 Rita RDCP1 Rita [id number] 00:00:00 00:00:00 [facility] Clinic PA 2017-09-23 2017-09-23 Rita RDCP1 Rita [id number] 00:00:00 00:00:00 [facility] Clinic PA 2017-08-16 2017-08-16 Riat RDCP1 Rita [id number] 00:00:00 00:00:00 [facility] Clinic PA 2017-08-16 2017-08-16 Outpatient Harsha [id number] Salinas [id number] 00:00:00 00:00:00 [facility] 2017-05-09 2017-05-09 Rita RDCP1 Rita [id number] 00:00:00 00:00:00 [facility] Clinic PA 2017-05-06 2017-05-06 Rita RDCP1 Rita [id number] 00:00:00 00:00:00 [facility] Clinic PA 2017-05-06 2017-05-06 Rita RDCP1 Rita [id number] 00:00:00 00:00:00 [facility] Clinic PA 2017-04-27 2017-04-27 Rita RDCP1 Rita [id number] 00:00:00 00:00:00 [facility] Clinic PA 2017-04-07 2017-04-07 Rita RDCP1 Rita [id number] 00:00:00 00:00:00 [facility] Clinic PA 2017-02-01 2017-02-01 Rita RDCP1 Rita [id number] 00:00:00 00:00:00 [facility] Clinic PA 2017-01-29 2017-01-29 Rita RDCP1 Rita [id number] 00:00:00 00:00:00 [facility] Clinic PA 2017-01-29 2017-01-29 Rita RDCP1 Rita [id number] 00:00:00 00:00:00 [facility] Clinic PA 2017-01-28 2017-01-28 Rita RDEDISON1 Rita [id number] 00:00:00 00:00:00 [facility] Clinic PA 2017-01-28 2017-01-28 Rita RDEDISON1 Rita [id number] 00:00:00 00:00:00 [facility] Clinic PA 2016-12-28 2016-12-28 Rita ELLER1 Rita [id number] 00:00:00 00:00:00 [facility] Clinic PA 2016-12-17 2016-12-17 Rita RDEDISON1 Rita [id number] 00:00:00 00:00:00 [facility] Clinic PA 2016-12-17 2016-12-17 Outpatient EVER DominguezTran Rita [id number] 00:00:00 00:00:00 [facility] 2016-11-24 2016-11-24 Rita ELLER1 Rita [id number] 00:00:00 00:00:00 [facility] Clinic PA Social History This patient has no known social history. Vital Signs This patient has no known vital signs.
== END ==
LOC: RAD 16:23
PROVIDERS: ATTEND Student in an Organized Health Care Education/Training Program
DX: M54.16 Radiculopathy, lumbar region (principal)
CPT/HCPCS: 72146

== ENCOUNTER → 2020-11-16 | Outpatient (CLI) | payer OTHER ==
[~2020-11-16] MED LIST: COVID-19 VACCINE (PFIZER)/PF 30 MCG/0.3 ML VIAL IM ONE; EPINEPHRINE INJ/PF 1 MG/1 ML AMPULE IM PRN
== END ==
LOC: EMPHEALTH 10:49
PROVIDERS: ATTEND Internal Medicine
DX: Z23 Encounter for immunization (principal)
CPT/HCPCS: 91300

== ENCOUNTER → 2020-12-06 | Outpatient (CLI) | payer OTHER | LOC: EMPHEALTH 07:06 | PROVIDERS: ATTEND Internal Medicine | DX: Z23 Encounter for immunization (principal) | CPT/HCPCS: 91300 ==